=== PATIENT | female | born 1995 | race Caucasian/White ===

== ENCOUNTER 2016-05-30 16:49 | Inpatient (IN) | payer MEDICAID ==
[~2016-05-30] VITALS: Ht 157.5 cm; Wt 69.7 kg
[2016-05-30 17:10] VITALS: BP 127/67; PULSE 73; RESP 19
[2016-05-30] MEDS ORDERED: PRENAT PO (17:12)
[2016-05-30] MEDS ORDERED: CALC600T11 PO (17:12)
[2016-05-30] MEDS ORDERED: FERR134T PO (17:12)
[2016-05-30] MEDS ORDERED: FOL8 PO (17:13)
[2016-05-30] MEDS ORDERED: LACTATED RINGER'S 1,000 ML IV SCH (17:42)
[2016-05-30] MEDS ORDERED: LACTATED RINGER'S 1,000 ML IV PRN (17:42)
--- NOTE | 2016-05-30 17:58 | TRIAGE ---
OB Triage Datetime Report Generated by CPN: 05/30/2016 17:57 Datetime: 05/30/2016 17:57 Assessment Type: Admission Assessment Maternal Assessment Level of Consciousness: Fully Conscious DTR's/Clonus: DTRs 2+; No Clonus Headache: Denies Blurred Vision: No Respiratory Effort: Unlabored; Regular Rhythm; Equal Expansion Breath Sounds, Left: Clear and Equal Breath Sounds, Right: Clear and Equal Nausea/Vomiting: Denies RUQ Epigastric Pain: Denies Lower Extremities Edema: None Upper Extremities Edema: None Facial Edema: None Fall Risk Assessment History of Falling: (0) No Secondary Diagnosis: (0) No Ambulatory Aid: (0) Bedrest/Nurse Assist Gait: (0) Normal/Bedrest/Immobile Mental Status: (0) Oriented to Own Ability Datetime: 05/30/2016 17:40 Labor Evaluation Frequency: 1-4 Monitor Mode: External Duration (sec)2399: 50-70 Quality: Mild Pattern: Normal: <= 5 Contractions in 10 Minutes Resting Tone [place]: Relaxed Heart Rate FHR Baseline Rate: 135 Monitor Mode: External US FHR Baseline Changes: No Baseline Change Variability: Moderate 6-25 bpm Accelerations: 15X15 Decelerations: Variable Category: Category II Comments: Vx1 Datetime: 05/30/2016 17:05 Vaginal Exam Dilatation (cms): 4.5 Effacement (%): 80 Station: -2 Exam By: CKUNIYOSHI Vaginal Bleeding: None Cervix, Consistency: Soft Cervix, Position: Midposition Presentation 'A': Cephalic Datetime: 05/30/2016 17:02 Stage of : OB Triage Assessment Type: Triage Maternal Assessment Level of Consciousness: Fully Conscious Headache: Denies Blurred Vision: No Respiratory Effort: Unlabored; Regular Rhythm; Equal Expansion Breath Sounds, Left: Clear and Equal Breath Sounds, Right: Clear and Equal Nausea/Vomiting: Denies RUQ Epigastric Pain: Denies Lower Extremities Edema: None Degree: None Upper Extremities Edema: None Degree: None Facial Edema: None Temperature Route: Oral Fall Risk Assessment History of Falling: (0) No Secondary Diagnosis: (0) No Ambulatory Aid: (0) Bedrest/Nurse Assist IV Therapy: (0) No Gait: (0) Normal/Bedrest/Immobile Mental Status: (0) Oriented to Own Ability Fall Score: 0 Fall Risk Score Definition: No Risk: No action required Pain Assessment Pain Scale: 6 Pain Presence: Intermittent Pain Type: Contraction Pain Location: Abdomen; Back Datetime: 05/30/2016 16:54 Time of Arrival: 05/30/2016 16:45 EGA: 40.3 Arrived By: Wheelchair Arrived From: Emergency Dept Chief Complaint: CTX, LEAKING x2 HOURS Movement: Present Contractions: Regular Time Contractions Began: 05/29/2016 14:00 Contractions: 5 Rupture of Membranes: Unsure Vaginal Bleeding: None Vaginal Discharge: Denies Recent Sexual Intercouse: Denies Abdominal Trauma: Not Applicable Patient Complaints: Contractions; Other Time Provider Notified: 05/30/2016 17:20 Provider Notified: DR. VILLEGAS Initial Plan: PRIYA Russell Datetime: 05/30/2016 16:53 Time of Arrival: 05/30/2016 16:45 Arrived By: Wheelchair Arrived From: Emergency Dept Chief Complaint: CTX AND POSSIBLE SROM x2 HOURS Movement: Present Initial Plan: PRIYA Russell
[2016-05-30] MEDS ORDERED: OXYTOCIN 30 UNITS/LR 500 ML IV SCH (18:00)
[2016-05-30] MEDS ORDERED: BUTORPHANOL 2 MG INJ IV PRN (18:00)
[2016-05-30] MEDS ORDERED: OXYTOCIN 30 UNITS/LR 500 ML IV PRN ×2 (18:00→19:30)
[2016-05-30] MEDS ORDERED: METHYLERGONOVINE 0.2 MG INJ IM PRN ×2 (18:00→19:30)
[2016-05-30] MEDS ORDERED: OXYCODONE/ASPIRIN (4.88/325) TAB PO PRN ×2 (18:00→19:30)
[2016-05-30] MEDS ORDERED: IBUPROFEN 600 MG TAB PO PRN (18:00)
[2016-05-30] MEDS ORDERED: CARBOPROST 250 MCG INJ IM PRN ×2 (18:00→19:30)
[2016-05-30] MEDS ORDERED: MISOPROSTOL 200 MCG TAB PR PRN ×2 (18:00→19:30)
[2016-05-30] MEDS ORDERED: LIDOCAINE 1% (MPF) 30 ML INJ INJ PRN (18:00)
[2016-05-30] MEDS: OXYTOCIN 30 UNITS/LR 500 ML IV SCH ×3 (18:04→22:24)
[2016-05-30 18:22] LABS: INR 0.91; PROTIME 12.2 Sec (12.2-14.2)
[2016-05-30 18:23] LABS: PARTIAL THROMBOPLASTIN TIME 23.5 Sec (25.0-35.0)
[2016-05-30 18:37] LABS: BASOPHILS % 0.3 % (0.0-2.0); EOSINOPHILS # 0.1 10^3/ul (0.0-0.5); EOSINOPHILS % 1.1 % (0.0-7.0); HEMATOCRIT 34.2 % (37.0-47.0); HEMOGLOBIN 11.4 g/dl (12.0-16.0); LYMPHOCYTES # 3.1 10^3/ul (0.8-2.9); LYMPHOCYTES % 25.5 % (18.0-55.0); MEAN CORPUSCULAR HGB CONC 33.3 g/dl (32.0-37.0); MEAN CORPUSCULAR VOLUME 78.3 fl (72.0-104.0); MEAN PLATELET VOLUME 11.4 fl (7.4-10.4); MONOCYTE # 0.8 10^3/ul (0.3-0.9); MONOCYTES % 6.5 % (0.0-13.0); NEUTROPHILS % 66.6 % (30.0-74.0); PLATELET COUNT 165 10^3/UL (140-440); RED BLOOD COUNT 4.37 10^6/ul (4.20-5.40)
[2016-05-30 18:41] LABS: CONDITION 1; LH ANALYZER COMMENTS 1; SUSPECT 1
[2016-05-30] MEDS ORDERED: BENZOCAINE 20% 56 ML SPRAY TOP PRN (19:30)
[2016-05-30] MEDS ORDERED: LANOLIN 7 GM TUBE TOP PRN (19:30)
--- NOTE | 2016-05-30 19:35 | LDN ---
Date/Time of Note Date/Time of Note DATE: 05/30/16 TIME: 19:28 Delivery Summary of a viable baby boy weighing 3775 grams, or 8# 5 oz, 19.75" long, and with Apgars of 9/9. Placenta Delivered: Spontaneously Meconium: none Perineum intact?: No Perineal laceration: 2 Perineal laceration repair: Second degree perineal laceration and a first degree right labial laceration repaired with 2-0 chromic and local 1% Marcaine anesthetic. Estimated blood loss: 450 (The lower uterine segment did not contract well after delivery of the placenta despite Pitocin so gave the patient one dose of Methergine IM with much better results.) Sponge & Needle done & correct: Yes All needle counts correct: Yes Any foreign bodies felt in the: No (vagina) Problems: Delivery Information Sex Sex: male Apgars 1 Minute: 9 5 Minute: 9 Suctioning Nose & mouth suctioned at vanessa: Yes Delee suction performed: No Umbilical Cord Umbilical cord with: 3 Vessels Cord presentations: no nuchal cord Cord Blood was obtained: Yes Mother & Baby Disposition Disposition Mom & Baby to Maternity; Good: Yes Baby to NICU: No AMAN MOY MD May 30, 2016 19:35
--- NOTE | 2016-05-30 19:43 | HP ---
Date/Time of Note Date/Time of Note DATE: 05/30/16 TIME: 19:35 OB - History Hx of Present Free Text/Dictation 20 y.o. with an IUP at 40 weeks 3 days came in active labor and was 5 cm on first exam and delivered within 90 minutes of presentation. Estimated Due Date: May 27, 2016 : 3 Para: 2 Care: Other (Prenatals not available) Ultrasounds: Other (Prenatals not available) Obstetrical Complications: None Medical Complications: None Past Family/Social History * Past Medical, Surgical, and Obstetric Histories reviewed with pt. Prenatals not available. Blood Type: Unknown Rubella: unknown RPR/VDRL: Unknown GBS Status: Negative HBsAG: Unknown OB Admission Exam Vital Signs Vital Signs Vital Signs Date Time Temp Pulse Resp B/P Pulse Ox O2 Delivery O2 Flow Rate FiO2 05/30/16 17:10 98.8 73 19 127/67 99 Room Air Physical Exam HEENT: WNL Heart: Rhythm Normal Lungs: Clear Abdomen: WNL Extremities: Normal Reflexes: Normal Cervical Dilatation: 5cm Effacement: 75% Station: -2 Membranes: Ruptured Amniotic Fluid: Clear Heart Rate: 130's Accelerations: Accelerations Present Decelerations: No Decelerations Varibility: Moderate Contractions on Admission: < 5 Minutes Apart Last 72 hours Lab Results CBC & BMP 05/30/16 18:00 OB Assessment/Plan Reason for admission: active labor Plan: Expectant Management AMAN MOY MD May 30, 2016 19:43
[2016-05-30 19:49] LABS: BENZODIAZEPINES NEGATIVE (NEGATIVE); CANNABINOIDS NEGATIVE (NEGATIVE); COCAINE NEGATIVE (NEGATIVE)
[2016-05-30 20:40] VITALS: BP 119/61; PULSE 65; RESP 19
[2016-05-30 21:24] VITALS: BP 116/58; PULSE 81; RESP 19
[2016-05-30 21:29] LABS: BARBITURATES Negative (NEGATIVE); OPIATES Negative (NEGATIVE)
[2016-05-30] MEDS: IBUPROFEN 600 MG TAB PO SCH (23:28)
[2016-05-31 04:15] VITALS: BP 96/60; PULSE 98; RESP 19
[2016-05-31] MEDS: IBUPROFEN 600 MG TAB PO SCH ×4 (05:49→23:45)
[2016-05-31] MEDS: OXYTOCIN 30 UNITS/LR 500 ML IV SCH (07:04)
[2016-05-31 07:30] VITALS: BP 121/75; PULSE 80; RESP 18
[2016-05-31 07:32] LABS: BASOPHILS % 0.3 % (0.0-2.0); EOSINOPHILS # 0.1 10^3/ul (0.0-0.5); EOSINOPHILS % 0.4 % (0.0-7.0); HEMATOCRIT 29.9 % (37.0-47.0); LYMPHOCYTES # 1.6 10^3/ul (0.8-2.9); LYMPHOCYTES % 12.8 % (18.0-55.0); MEAN CORPUSCULAR HEMOGLOBIN 26.6 pg (29.0-33.0); MEAN CORPUSCULAR HGB CONC 33.5 g/dl (32.0-37.0); MEAN CORPUSCULAR VOLUME 79.5 fl (72.0-104.0); MEAN PLATELET VOLUME 12.1 fl (7.4-10.4); MONOCYTE # 1.1 10^3/ul (0.3-0.9); MONOCYTES % 8.4 % (0.0-13.0); NEUTROPHIL # 9.9 10^3/ul (1.6-7.5); NEUTROPHILS % 78.1 % (30.0-74.0); PLATELET COUNT 137 10^3/UL (140-440); RED BLOOD COUNT 3.76 10^6/ul (4.20-5.40); RED CELL DISTRIBUTION WIDTH 14.7 % (11.5-14.5); UNCORRECTED WBC 12.7 10^3/ul (4.8-10.8); WHITE BLOOD COUNT 12.7 10^3/ul (4.8-10.8)
[2016-05-31 07:41] LABS: CONDITION 1; LH ANALYZER COMMENTS 1; SUSPECT 1
[2016-05-31 12:00] VITALS: BP 120/71; PULSE 76; RESP 16
--- NOTE | 2016-05-31 12:29 | PN ---
Date/Time of Note Date/Time of Note DATE: 05/31/16 TIME: 12:28 OB Subjective Subjective Subjective Post normal vaginal delivery day 1 Afebrile vital sign stable, abdomen soft, uterus firm, lochia normal, extremity normal Laboratory Tests Test 05/30/16 16:50 05/30/16 18:00 05/31/16 06:50 Urine Amphetamines Screen NEGATIVE Urine Barbiturates Negative Urine Benzodiazepines Screen NEGATIVE Urine Cannabinoids NEGATIVE Urine Cocaine Screen NEGATIVE Urine Opiates Screen Negative Activated Partial Thromboplast Time 23.5Sec Basophils # 0.010^3/ul 0.010^3/ul Basophils % 0.3% 0.3% Blood Morphology Comment Eosinophils # 0.110^3/ul 0.110^3/ul Eosinophils % 1.1% 0.4% HIV (1&2) Antibody NEGATIVE Hematocrit 34.2% 29.9% Hemoglobin 11.4g/dl 10.0g/dl Hepatitis B Surface Antigen NEGATIVE INR International Normalized Ratio 0.91 Lymphocytes # 3.110^3/ul 1.610^3/ul Lymphocytes % 25.5% 12.8% Mean Corpuscular Hemoglobin 26.0pg 26.6pg Mean Corpuscular Hemoglobin Concent 33.3g/dl 33.5g/dl Mean Corpuscular Volume 78.3fl 79.5fl Mean Platelet Volume 11.4fl 12.1fl Monocytes # 0.810^3/ul 1.110^3/ul Monocytes % 6.5% 8.4% Neutrophils # 8.010^3/ul 9.910^3/ul Neutrophils % 66.6% 78.1% Nucleated Red Blood Cells # 0.010^3/ul 0.010^3/ul Nucleated Red Blood Cells % 0.0/100WBC 0.0/100WBC Platelet Count 98908^3/UL 21326^3/UL Prothrombin Time 12.2Sec Prothrombin Time Ratio 1.0 Rapid Plasma Reagin NONREACTIVE Red Blood Count 4.3710^6/ul 3.7610^6/ul Red Cell Distribution Width 15.0% 14.7% White Blood Count 12.010^3/ul 12.710^3/ul Current Medications Medications (Trade) Dose Ordered Sig/Osvaldo Route PRN Reason Start Time Stop Time Status Last Admin Dose Admin Lactated Ringer's (Lr) 1,000 ml @ 125 mls/hr Q8H IV 05/30/16 17:42 05/30/16 19:24 DC 05/30/16 18:06 Butorphanol Tartrate (Stadol) 2 mg Q2H PRN IV PAIN 05/30/16 18:00 05/30/16 19:24 DC Lidocaine 30 ml 30 ml ONCE PRN INJ EPISIOTOMY/TEARING 05/30/16 18:00 05/30/16 19:24 DC Oxytocin/Lactated Ringer's 500 ml @ 0 mls/hr ONCE -MAY REPEAT X1 IV 05/30/16 18:00 05/30/16 19:24 DC 05/30/16 19:04 Oxytocin/Lactated Ringer's 500 ml @ 125 mls/hr ONCE IV 05/30/16 18:00 05/30/16 19:24 DC Ibuprofen (Motrin) 600 mg ONCE PRN PO Mild Pain (Pain Score 1-3) 05/30/16 18:00 05/30/16 19:24 DC Oxycodone/Aspirin 2 tab 2 tab ONCE PRN PO Moderate to Severe Pain (4-10) 05/30/16 18:00 05/30/16 19:24 DC Lactated Ringer's 1,000 ml @ 2,000 mls/hr Q30M PRN IV PRE-EPIDURAL BOLUS 05/30/16 17:42 05/30/16 19:24 DC Oxytocin/Lactated Ringer's 500 ml @ 0 mls/hr ONCE PRN IV For Hemorrhage Management 05/30/16 18:00 05/30/16 19:25 DC Methylergonovine Maleate (Methergine) 0.2 mg ONCE PRN IM VAGINAL BLEEDING 05/30/16 18:00 05/30/16 19:25 DC 05/30/16 19:06 Carboprost Tromethamine (Hemabate) 250 mcg ONCE PRN IM VAGINAL BLEEDING 05/30/16 18:00 05/30/16 19:25 DC Misoprostol 1000 mcg 1,000 mcg ONCE PRN [place] VAGINAL BLEEDING 05/30/16 18:00 05/30/16 19:25 DC Oxytocin/Lactated Ringer's 500 ml @ 125 mls/hr Q4H IV 05/30/16 19:19 05/31/16 03:18 05/30/16 22:24 Ibuprofen (Motrin) 600 mg Q6 PO 05/31/16 00:00 05/31/16 12:12 Oxycodone/Aspirin (Percodan) 1 tab Q3H PRN PO PAIN LEVEL 1-5 05/30/16 19:30 Benzocaine (Dermoplast [place]) 1 spray BEDSIDE MEDICATION PRN TOP HEMORRHOID/EPISIOTMY PAIN 05/30/16 19:30 05/30/16 22:23 Lanolin ([id number]) 1 applic BEDSIDE MEDICATION PRN TOP BEDSIDE FOR GORDY TO NIPPLES 05/30/16 19:30 05/30/16 22:23 Diphtheria/ Tetanus/Acell Pertussis 0.5 ml 0.5 ml ONCE ONCE IM* 06/01/16 09:00 06/01/16 09:01 Oxytocin/Lactated Ringer's 500 ml @ 0 mls/hr ONCE PRN IV For Hemorrhage Management 05/30/16 19:30 Methylergonovine Maleate (Methergine) 0.2 mg ONCE PRN IM VAGINAL BLEEDING 05/30/16 19:30 Carboprost Tromethamine (Hemabate) 250 mcg ONCE PRN IM VAGINAL BLEEDING 05/30/16 19:30 Misoprostol (Cytotec) 1,000 mcg ONCE PRN [place] VAGINAL BLEEDING 05/30/16 19:30 Influenza Virus Vaccine (Fluzone) 0.5 ml ONCE ONCE IM* 06/01/16 09:00 06/01/16 09:01 FREDDY VILLEGAS MD May 31, 2016 12:29
[2016-05-31 15:45] VITALS: BP 109/63; PULSE 76; RESP 18
[2016-05-31 20:00] VITALS: BP 106/55; PULSE 75; RESP 18
[2016-06-01 04:00] VITALS: BP 109/58; PULSE 69; RESP 15
[2016-06-01] MEDS: IBUPROFEN 600 MG TAB PO SCH ×2 (06:05→12:05)
[2016-06-01 08:25] VITALS: BP 92/47; PULSE 67; RESP 18
[2016-06-01] MEDS ORDERED: DIPHTH/TET/ACEL PERTUSS (ADULT) 0.5 ML VIAL IM* ONE (09:00)
[2016-06-01] MEDS ORDERED: INFLUENZA VIRUS VACCINE 0.5 ML (DISPENSING) IM* ONE (09:00)
[2016-06-01 11:04] VITALS: BP 92/47; PULSE 67; RESP 16
--- NOTE | 2016-06-01 14:13 | PD.PPDC ---
TERMITE EXTERMINATOR Discharge Instruction Condition Patient Condition: Good Diet Diet: Resume Regular Diet Wound/Drain Care Instructions Wound/Drain Care Instructions: Wash with soap and water Keep clean and dry Follow-up Follow-up with Physician: 2, Week/Weeks Return to clinic for SOFTWARE [employer]S Instructions: Fever greater than 101 Worsening abdominal pain More than 2 pads per hour OB Instructions: Breast Tenderness Blurried Vision FREDDY VILLEGAS MD Jun 01, 2016 14:13
--- NOTE | 2016-06-01 14:16 | DS ---
Date/Time of Note Date/Time of Note DATE: 06/01/16 TIME: 14:14 Obstetrical Discharge Record Final Diagnosis Final Diagnosis: Term delivered Vaginal Delivery Obstetrical Delivery: Spontaneous Condition on Discharge Physical Assessment Last Vitals: Uneventful normal vaginal delivery patient is discharged home in satisfactory condition. Her abdomen is soft uterus firm lochia normal extremity normal recommended to make appointment in 2 weeks for follow-up the clinic. Voiding: Yes Bowel Movement: Yes Breast: Soft, non-tender, Filling Fundus: Firm Calf Tenderness: No Patient Condition: Good FREDDY VILLEGAS MD Jun 01, 2016 14:16
[2016-06-02 13:27] LABS: RUBELLA ANTIBODY - IGG 2.58
== END 2016-06-01 16:40 | disposition home or self-care (01) | DRG 775 ==
LOC: OBT 16:49 → L-D 16:50 → OBT 17:25 → L-D 17:43 → PP1 20:38
PROVIDERS: ADMIT Obstetrics & Gynecology; ATTEND Obstetrics & Gynecology
PROC: 10E0XZZ Delivery of Products of Conception, External Approach (ICD-10-PCS; principal; 2016-05-30)
PROC: 0KQM0ZZ Repair Perineum Muscle, Open Approach (ICD-10-PCS; 2016-05-30)
DX: O70.1 Second degree perineal laceration during delivery (principal); Z37.0 Single live birth; Z3A.40 40 weeks gestation of pregnancy
CPT/HCPCS: 80307; 85025; 85610; 85730; 86592; 86703; 86762; 86850; 86900; 86901; 87340; 90686; 90715; G0463; J2210; J2590; J7120